=== PATIENT | female | born 1945 | race Caucasian/White ===

== ENCOUNTER → 2020-04-14 08:37 | Outpatient (CLI) | payer MEDICARE, SELFPAY ==
--- NOTE | 2020-04-14 | DI.MG.S_ITS ---
UNILATERAL RIGHT DIGITAL DIAGNOSTIC MAMMOGRAM 3D/2D WITH ADDITIONAL VIEWS: 04/14/2020 CLINICAL: Additional evaluation requested from prior study. Comparison is made to exams dated: 03/15/2020 mammogram, 07/02/2017 mammogram, and 11/11/2018 mammogram - [facility]. There are scattered fibroglandular elements in right breast. There is a new 2 cm oval high density mass with a spiculated margin and grouped coarse heterogeneous calcifications in the right breast at 12 o'clock middle depth. This is seen in additional views. This correlates as palpated. No other significant masses or calcifications are seen in the breast. IMPRESSION: INCOMPLETE: NEEDS ADDITIONAL IMAGING EVALUATION The new 2 cm oval high density mass in the right breast is indeterminate. An ultrasound is recommended. This exam was interpreted at Station ID: [id number]. NOTE: For mammograms, a report in lay terms will be sent to the patient. Approximately 15% of breast malignancies will not be visualized mammographically. In the management of a palpable breast mass, a negative mammogram must not discourage biopsy of a clinically suspicious lesion. SUMMARY: Targeted ultrasound is recommended for further evaluation and will be scheduled immediately following this exam. Electronically Signed By: Roni pack/harriet:04/14/2020 10:51:42 ACR BI-RADS Category 0: Incomplete [id number]
--- NOTE | 2020-04-14 | DI.US.S_ITS ---
LIMITED ULTRASOUND OF RIGHT BREAST AND AXILLA: 04/14/2020 CLINICAL: Palpable right breast lump. Comparison is made to exams dated: 04/14/2020 mammogram - [facility], 03/15/2020 mammogram, 11/11/2018 mammogram, and 07/02/2017 mammogram - [facility]. Color flow ultrasound of the right breast axilla was performed. Esposito scale images of the real-time examination were reviewed. There is a 1.8 cm x 1.7 cm x 1.5 cm irregular mass with an angular margin in the right breast at 12 o'clock posterior depth 9 cm from the nipple. This irregular mass is hypoechoic with posterior acoustic enhancement. This correlates as palpated and with mammography findings. There are related calcifications. Color flow imaging demonstrates that there is increased vascularity. No significant abnormalities were seen sonographically in the right axilla. IMPRESSION: HIGHLY SUGGESTIVE OF MALIGNANCY The 1.8 cm x 1.7 cm x 1.5 cm irregular mass in the right breast is highly suggestive of malignancy. An ultrasound guided biopsy is recommended. The findings and recommendations were discussed with the patient by the onsite radiologist, Dr. Arcos, at the time of the exam. This exam was interpreted at Station ID: [id number]. Electronically Signed By: Roni pack/harriet:04/14/2020 12:41:30 letter sent: Biopsy Required Ultrasound BI-RADS: 5 Highly suggestive of malignancy
== END ==
PROVIDERS: PCP Student in an Organized Health Care Education/Training Program; Referring Provider Student in an Organized Health Care Education/Training Program; Visit Provider Student in an Organized Health Care Education/Training Program
DX: R92.8 Other abnormal and inconclusive findings on diagnostic imaging of breast (principal); R92.1 Mammographic calcification found on diagnostic imaging of breast; N63.15 Unspecified lump in the right breast, overlapping quadrants
CPT/HCPCS: 76642; 77065; G0279

== ENCOUNTER → 2020-04-29 13:00 | Outpatient (CLI) | payer MEDICARE, SELFPAY ==
--- NOTE | 2020-04-29 | PATH_ITS ---
[facility] Accession Number: [id number] . 01 Material submitted: . breast - RIGHT BREAST MASS 12:00 . 01 Clinical history: . OTHER ABNORMAL AND INCONCLUSIVE FINDINGS ON DIAG.. . 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 [place] Histologic Score: Glandular/Tubular Differentiation: Score 3 Nuclear Pleomorphism: Score 3 Mitotic Rate: Score 3 Overall Grade: Grade 3 (Score 9 of 9). 2. Greatest Linear Extent: 14 mm. 3. Ductal Carcinoma In Situ: Not identified. 4. Microcalcifications: Not identified. 5. Lymphovascular Invasion: Not identified. 6. Prognostic Markers: Estrogen Receptor (SP1): Negative. Progesterone Receptor (1E2): Negative. HER-2 by immunohistochemistry (4B5): Negative (Score 0). 7. Please see comment. [facility] 05/06/2020 1636 Local . 02 Comment: The immunophenotype is nonspecific, but could be compatible with a high grade carcinoma with features of ductal and basal-like breast carcinoma in the appropriate clinical and radiologic setting. . As part of routine air quality technician, this case has also been reviewed by Dr. Gilliam , who agrees with the interpretation. Dr. Munoz discussed a preliminary result of invasive high-grade carcinoma with Dr. Adams on 05/03/2020 at 11:22 AM. . 02 Electronically signed: . Sunita Munoz MD, Pathologist NPI- [id number] . 01 Gross description: . Received one formalin-filled container labeled with the patient's name and designated right breast mass 12 o'clock. The specimen is received with plastic filter in container, sample loose in container. The specimen consists of multiple light yellow-houser to light hemphill pieces of tissue and friable material, which measure 1.0 x 1.0 x 0.3 cm in aggregate. The specimen is filtered and entirely submitted in one cassette. Possible collection date and time is 04/29/2020 at 1405. Total fixation time approximately 77 hours. ([facility] [place] [id number]) /[facility] 05/02/2020 1747 Local . 02 Microscopic: . Immunohistochemical stains were performed to characterize the cells of interest. All control stains showed appropriate reactivity. . Results: Cytokeratin ELPIDIO: Uniformly positive. Cytokeratin 7: Uniformly positive. Cytokeratin 20: Negative. S100: Negative. Mammaglobin: Negative. GCDFP-15: Negative. YAHIR-3: Negative. CK5/6: Variably positive. P40: Negative. E Cadherin: Uniformly positive. P63: Negative around the cells of interest. Myosin: Negative around the cells of interest. D2-40: Negative around the cells of interest. CD31: Negative, Highlights vessels. ERG: Negative, highlights vessels. TTF-1: Negative. CDX2: Negative. PAX-8: Negative. Estrogen Receptor (SP1): Negative. Progesterone Receptor (1E2): Negative. HER-2 by Immunohistochemistry (4B5): Negative (Score 0). . . Interpretation: The immunophenotype is nonspecific due to the absence of breast specific markers, but could be compatible with a high grade carcinoma with features of ductal and basal-like breast carcinoma in the appropriate clinical and radiologic setting. There is no evidence of ductal carcinoma in situ or lymphovascular invasion, confirmed by immunohistochemistry. A limited panel of organ specific markers for vascular, lung, colon, and gynecologic origin are negative. . Internal controls for prognostic markers are absent, but external controls are appropriately positive. If needed, testing another specimen that contains internal controls may be warranted for confirmation of ER status. . TECHNICAL NOTE: Testing performed on block A1. Cold Ischemia and Fixation Times: Meets requirements in the latest version of the ASCO/CAP guidelines. The scoring criteria for breast biomarkers by immunohistochemistry is based on the current ASCO/CAP guidelines (Kelley et al, Arch Pathol Lab Med 2010: 134(6): 907-922 / Monroe Hodge al, Arch Pathol Lab Med 2014: 138(2): 241-256). Deparaffinized sections of formalin fixed tissue (along with appropriate positive controls) are incubated with the above antibody(s). Using the automated [place] stainer, tissue is incubated with the designated antibody* which is then localized by a non-biotin, dual polymer detection system. The external controls are reviewed for appropriate reactivity and found to be adequate. Results on the target cell population are indicated above. These tests have not been validated on decalcified tissue. * This test was developed and its performance characteristics determined by [facility]. It has not been cleared or approved by the U.S. Food and Drug Administration. The FDA has determined that such clearance or approval is not necessary. This test is used for clinical purposes. It should not be regarded as investigational or for research. . 02 Pathologist provided ICD-10: C50.911 . 02 CPT . 748450, R89751, S78767 Performed at: 01 [facility] [address] [place] [id number] MD Anjum Xavier MD Phone: [phone] Performed at: 02 [facility] [address] [place], [place] [id number] MD Sunita Munoz MD Phone: [phone]
--- NOTE | 2020-04-29 | DI.US.S_ITS ---
ULTRASOUND GUIDED BIOPSY RIGHT BREAST USING VACUUM DEVICE WITH POST MAMMOGRAPHIC IMAGIN04/29/2020 CLINICAL: Right breast mass. PATIENT CONSENT: Risks (minor bleeding, infection, vasovagal reaction and repeat procedure), benefits and alternatives were explained to the patient and written informed consent was obtained. Correlation is made to exams dated: 04/14/2020 ultrasound, 04/14/2020 mammogram - [facility], 03/15/2020 mammogram, 11/11/2018 mammogram, and 07/02/2017 mammogram - [facility]. An ultrasound guided biopsy using real-time ultrasound was performed for the 1.8 cm x 1.7 cm x 1.5 cm circumscribed lobulated solid mass located in the right breast at 12 o'clock posterior depth 9 cm from the nipple. The skin was prepped in the usual manner. Local anesthetic was administered to the access site. A skin mare was made in the breast. The abnormality was approached from the lateral aspect. A 13 gauge biopsy needle was placed adjacent to the abnormality under ultrasound guidance. Once the needle was documented to be in the correct location, five specimens were obtained using the Mammotome biopsy system. Post procedure mammographic imaging demonstrates the clip at the targeted area. The specimens were sent to the laboratory for pathological analysis. IMPRESSION: ULTRASOUND GUIDED BIOPSY MALIGNANT Ultrasound guided biopsy of the 1.8 cm x 1.7 cm x 1.5 cm solid mass in the right breast posterior depth was successful with no apparent post procedure complications. 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 Pathology results are concordant with imaging findings. A surgical/oncologic consultation is recommended. Results and recommendations will be communicated to the ordering provider's office. This exam was interpreted at Station ID: [id number]. Tanvir caceres,christo/:05/10/2020 16:14:33
--- NOTE | 2020-04-29 | DI.MG.S_ITS ---
UNILATERAL RIGHT DIGITAL DIAGNOSTIC MAMMOGRAM POST-NEEDLE BIOPSY: 04/29/2020 CLINICAL: Abnormal mammogram. Comparison is made to exams dated: 04/14/2020 mammogram - [facility], 03/15/2020 mammogram, and 11/11/2018 mammogram - [facility]. There are scattered fibroglandular elements in right breast. There is a marker clip in the appropriate position in the right breast at 12 o'clock posterior depth. This marker clip placement is at the biopsy site. This correlates with ultrasound findings. IMPRESSION: POST PROCEDURE MAMMOGRAM FOR MARKER PLACEMENT There was a successful marker clip placement in the right breast posterior depth. This exam was interpreted at Station ID: [id number]. NOTE: For mammograms, a report in lay terms will be sent to the patient. Approximately 15% of breast malignancies will not be visualized mammographically. In the management of a palpable breast mass, a negative mammogram must not discourage biopsy of a clinically suspicious lesion. Electronically Signed By: Tanvir Cutler acr/:04/29/2020 14:29:56 ACR BI-RADS Category Post-procedure mammogram for marker placement
== END ==
PROVIDERS: PCP Student in an Organized Health Care Education/Training Program; Referring Provider Student in an Organized Health Care Education/Training Program; Visit Provider Student in an Organized Health Care Education/Training Program
DX: C50.811 Malignant neoplasm of overlapping sites of right female breast (principal); Z17.1 Estrogen receptor negative status [ER-]
CPT/HCPCS: 19083; 77065